=== PATIENT | female | born 1950 | race Caucasian/White ===

== ENCOUNTER 2016-04-24 05:57 | Observation (INO) | payer MEDICARE, BC ==
[2016-04-14 11:09] LABS: BASOPHILS 0.8 %; BASOPHILS ABSOLUTE 0.06 10/3/uL (0.0-0.16); EOSINOPHILS ABSOLUTE 0.16 10/3/uL (0.0-0.53); HEMOGLOBIN 11.8 g/dL (12.0-16.0); IMMATURE GRANULOCYTES 0.1 %; IMMATURE GRANULOCYTES ABSOLUTE 0.01 10/3/uL (0.0-0.11); LYMPHOCYTES 26.6 %; MEAN CORPUS HGB CONC 33.4 g/dL (32.0-36.0); MEAN PLATELET VOLUME 9.2 fL (9.2-13.0); MONOCYTES 10.1 %; NEUTROPHILS 60.4 %; NEUTROPHILS ABSOLUTE 4.76 10/3/uL (2.02-8.40); PLATELET COUNT 303 10/3/uL (150-400); RBC DISTRIBUTION WIDTH 12.1 % (12.0-16.0); RED CELL COUNT 3.32 10/6/uL (4.0-5.6); WHITE BLOOD CELLS 7.9 10/3/uL (4.5-10.5)
[2016-04-14 11:10] LABS: HEMATOCRIT 35.3 % (36.0-48.0); MANUAL DIFF NO %; MEAN CORPUSCULAR HEMOGLOB 35.5 pg (26.0-34.0); MEAN CORPUSCULAR VOLUME 106.3 fL (80-100)
[2016-04-14 11:20] LABS: BUN (BLOOD UREA NITROGEN) 23 MG/DL (6-23); CALCIUM, SERUM 8.8 MG/DL (8.5-10.4); CHLORIDE, SERUM 104 MMOL/L (96-112); CO2 (CARBON DIOXIDE) 27 MMOL/L (24-34); CREATININE 1.06 MG/DL (0.55-1.02); GFR AFRICAN AMERICAN 63 ML/MIN (>=60); GFR NON AFRICAN AMERICAN 55 ML/MIN (>=60); GLUCOSE, SERUM 106 MG/DL (60-99); POTASSIUM, SERUM 4.2 MMOL/L (3.5-5.3); SODIUM, SERUM 141 MMOL/L (135-148)
--- NOTE | ~2016-04-24 | HP ---
History And Physical [place] [id number] [facility] [place]. [address] NAME: ARUNA JEAN : 50 STATUS : DIS Dario PAT#: [id number] AGE: 66 ADM/REG DATE : 04/24/16 MR#: [id number] REPORT SERV DATE: 05/01/16 DICTATED BY: GUERRERO GALARZA DATE: 05/01/16 REPORT STATUS : Draft TRANSCRIBED BY: CARMEN DATE: 05/01/16 DATE OF ADMISSION: 04/24/2016 ADMITTING DIAGNOSES: 1. Cervical dysplasia. 2. Inability to follow cervix, secondary to unable to visualize cervix with vaginal scarring. 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 She has been followed with PAP smears. However more recently, the vaginal tissue has grown over the cervix and the cervix could no longer be visualized. She is here today 04/24/2016, for removal of the uterus and ovaries, secondary to the inability to follow her cervical dysplasia. 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 PAST SURGICAL HISTORY: Consistent with three previous colon resections, secondary to her history of Crohn's disease. CURRENT MEDICATIONS: Ambien, Valtrex, Crestor, multiple vitamins, potassium supplements, Mesalamine, Zestril, Lasix, Flonase, Nexium, Bentyl, Restasis, Wellbutrin, Xanax, and Pro air. SOCIAL HISTORY: Negative for any tobacco, alcohol, or illicit drug use. FAMILY HISTORY: Negative. PHYSICAL EXAMINATION: GENERAL: She is awake, alert, and oriented x3, with intact memory, and appears to be in no apparent distress. HEENT: Reveals no gross defects. Her extraocular movements are symmetrical and intact. Ears and nose are without defects or lesions. Her hearing is intact, normal for age. LUNGS: Clear to auscultation bilaterally. HEART: Regular rate and rhythm without abnormal noises or murmurs. EXTREMITIES: Both upper and lower have full range of motion. No clubbing, varicosities, or edema. PELVIC: Exam was deferred to the operating room. ASSESSMENT AND PLAN: In summary, this is a 66-year-old with a history of lower genital tract dysplasia, who now has a scarring in the vagina and the cervix could no longer be visualized. She is being taken to the operating room for removal of the uterus and ovaries. The risks of the procedure been discussed in detail and she has given their consent to proceed. History And Physical [address] [address] NAME: ARUNA JEAN : 50 STATUS : DIS Dario PAT#: [id number] AGE: 66 ADM/REG DATE : 04/24/16 MR#: [id number] REPORT SERV DATE: 05/01/16 DICTATED BY: GUERRERO GALARZA DATE: 05/01/16 REPORT STATUS : Draft TRANSCRIBED BY: CARMEN DATE: 05/01/16 Thank you for allowing to participate in her care. CHEPE/CARMEN Guerrero Galarza M.D. / [id number] CC: Opal Palafox M.D.
--- NOTE | ~2016-04-24 | OP ---
Record Of Operation [facility] [address] [place]. [address] NAME: CLAUS JEAN : 50 STATUS : DIS Dario PAT#: [id number] AGE: 66 ADM/REG DATE : 04/24/16 MR#: [id number] REPORT SERV DATE: 04/30/16 DICTATED BY: GUERRERO GALARZA DATE: 04/30/16 REPORT STATUS : Draft TRANSCRIBED BY: MODCory DATE: 04/30/16 DATE OF PROCEDURE: 04/24/2016 PREOPERATIVE DIAGNOSES: 1. History of lower genital tract dysplasia. 2. Inability to see the cervix secondary to vaginal scarring. POSTOPERATIVE DIAGNOSES: 1. History of lower genital tract dysplasia. 2. Inability to see the cervix secondary to vaginal scarring. PROCEDURE: 1. Laparoscopic hysterectomy with bilateral salpingo-oophorectomy via the da Jone laparoscopic robotic instrument, CPT Code 73349. 2. Extensive lysis of adhesions, CPT code 06194. ESTIMATED BLOOD LOSS: 50 mL. FLUIDS IN: 2000 mL of crystalloid. URINE OUTPUT: 600 mL. 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 She recently presented for a Pap smear and the cervix could not be visualized. Because of the inability to follow her Pap smear, decision was made to proceed with hysterectomy. She has had three previous colon resections and had extensive adhesions throughout the abdomen. Approximately 95% of the entire operative time was dedicated to remove these adhesions. The adhesions were throughout the entire abdominal cavity. The adhesions were taken down with a combination of straight laparoscopic techniques as well as robotic techniques. There were adhesions of the omentum, colon, and small bowel, and again took approximately two hours to get to the pelvis and so the uterus could be removed. The uterus was removed intact. The cervix could not be visualized and therefore a manipulator was not used. Cervix and uterus were examined on the back table with no gross evidence of malignancy. Postprocedure, a cystoscopy was performed with excellent bilateral ureteral jets. No evidence of bladder defect. Prior to the induction of anesthesia, the patient was treated with Lovenox for DVT prophylaxis as well as antibiotics. PROCEDURE IN DETAIL: The patient was taken to the operating room, and she was placed in supine position for administration of general anesthesia. She was then placed in dorsal lithotomy position and prepped and draped in usual sterile fashion. An attempt at placing the uterine manipulator was made, however, again the cervix could not be visualized. A ERNESTINE ring was placed where the cervix was thought to be and our attention was then turned towards the anterior abdominal wall. An incision was made in the left upper quadrant and carried down to the underlying layer of fascia. The fascia was grasped with two sutures of 0 Vicryl, tented up, and entered sharply. The peritoneum was then tented up and entered sharply, and a laparoscopic trocar was placed under direct visualization. The abdominal Record Of [facility] [address] [place]. [address] NAME: CLAUS JEAN : 50 STATUS : DIS Dario PAT#: [id number] AGE: 66 ADM/REG DATE : 04/24/16 MR#: [id number] REPORT SERV DATE: 04/30/16 DICTATED BY: GUERRERO GALARZA DATE: 04/30/16 REPORT STATUS : Draft TRANSCRIBED BY: MODCory DATE: 04/30/16 cavity was visualized with multiple adhesions noted. Initially, one additional 8 mm trocar was placed in the left lower quadrant and adhesions were taken down with sharp dissection under direct visualization. As multiple adhesions were taken down, additional trocars were placed until a total of four trocars were placed. Two additional 8 mm and one additional 12 mm trocar. Again, an extensive lysis of adhesions was required on the colon, small bowel, and omentum. These adhesions required approximately two hours of time to remove. Once the adhesions were displaced, the pelvis could be visualized and the patient was docked the laparoscopic robotic instrument and remainder of the procedure was performed via da Jone. Retroperitoneal spaces were opened via the round ligaments, which were grasped with bipolar cautery, cauterized, and transected bilaterally. The uterine arteries were identified at their origin and hemoclips were placed to ensure long-term hemostasis. The gonadal vessels were isolated, hemoclips were placed to ensure long-term hemostasis. They were then coagulated and transected bilaterally. Anteriorly, a bladder flap was created and taken down to a level well below the cervix. The uterine arteries were then skeletonized at the level of the cervix, grasped with bipolar cautery, cauterized, and transected bilaterally. Pressure was placed on the ERNESTINE ring from below and the uterosacral cardinal complex was taken down with sharp dissection and a circumferential incision was made around the cervix and vagina, and the uterus, tubes, ovaries, and cervix were delivered through the vagina with the above findings noted. The vaginal cuff was then closed with a running stitch of #1 PDS V-Loc. The pelvis was irrigated with copious amounts of warm water. A PRASHANT drain was placed at the vaginal cuff. The laparoscopic instruments were removed. The gas expelled from the abdomen. The initial incision was closed with 0 Vicryl at the fascia. The 12 mm port was also closed with 0 Vicryl at the fascia, and the 8 mm ports were closed with 4-0 Vicryl at the skin and Dermabond was placed. Postprocedure, a cystoscopy was performed with excellent bilateral ureteral jets. No evidence of bladder defect. At the completion of the procedure, the anesthesia was reversed. The patient was extubated and brought to the recovery room in stable condition. CHEPE/MODL Guerrero Galarza M.D. / [id number] CC: Opal Palafox M.D.
--- NOTE | ~2016-04-24 | DS ---
Discharge Summary [place] [address] [place]. [address] NAME: ARUNA JEAN : 50 STATUS : DIS Dario PAT#: [id number] AGE: 66 ADM/REG DATE : 04/24/16 MR#: [id number] REPORT SERV DATE: 05/01/16 DICTATED BY: GUERRERO GALARZA DATE: 05/01/16 REPORT STATUS : Draft TRANSCRIBED BY: MODL DATE: 05/01/16 ADMISSION DATE: 04/24/2016 DISCHARGE DATE: 04/27/2016 ADMITTING DIAGNOSIS: Lower genital tract dysplasia with a history of cervical cancer. PRINCIPLE PROCEDURE: Laparoscopic hysterectomy, BSO, and laparoscopic lysis of adhesions. 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 She was taken to the operating room on 04/24/2016, for laparoscopic hysterectomy/BSO. Intraoperatively, she was found to have multiple adhesions and extensive lysis of adhesions was undertaken. Post procedure, she did well and was uncomplicated. She was discharged home on 04/27/2016, with instructions to follow up at [facility]. CHEPE/CARMEN Guerrero Galarza M.D. / [id number] CC: Opal Palafox M.D.
[~2016-04-24 05:57] MED LIST: ACET500CAP PO; ALLERGY REL1 OPH; AMB5 PO; AMBIEN CR12.5 MG PO; BENTYL10 PO; BL FLAX SEED1000 MG OR; CENTRUM PO; CRESTOR20 MG PO; CYANO1000T PO; DELZICOL 400 M400 MG PO; FISH-EPA1000 MG PO; FLAG500TAB PO; FLAXSEED OIL1000 MG PO; FLONASE NAS; FOSAMAX70 MG PO; KLOR-CON 1010 MEQ PO; L20 PO; MAXZIDE PO; MULTIVITAMI1 PO; NEXIUM40 PO; NORCO1 TA1 PO; PRIN10 PO; PRIN5 PO; PROAIR HFA INH; PROBIOTIC OTC PO; RESTASIS OPH; SYSTANE OPH; VALTREX5 PO; VANCOCIN HCL125 MG PO; VENTOLIN HFA INH; VIT B-SIX 50 MG50 MG PO; VITAMIN D31000 UNIT PO; VITC500 PO; VITE PO; WELLBUTRIN200 MG PO; X5 PO; ZESTRIL5 MG PO; ZETIA PO; [UNRECOGNIZED DRUG - OTHER] V
[2016-04-25 05:39] LABS: BUN (BLOOD UREA NITROGEN) 11 MG/DL (6-23); CALCIUM, SERUM 8.7 MG/DL (8.5-10.4); CHLORIDE, SERUM 94 MMOL/L (96-112); CO2 (CARBON DIOXIDE) 26 MMOL/L (24-34); CREATININE 1.01 MG/DL (0.55-1.02); GFR AFRICAN AMERICAN 67 ML/MIN (>=60); GFR NON AFRICAN AMERICAN 58 ML/MIN (>=60); GLUCOSE, SERUM 100 MG/DL (60-99); POTASSIUM, SERUM 3.6 MMOL/L (3.5-5.3); SODIUM, SERUM 129 MMOL/L (135-148)
[2016-04-25 06:11] LABS: BASOPHILS 0.1 %; BASOPHILS ABSOLUTE 0.01 10/3/uL (0.0-0.16); EOSINOPHILS 0.2 %; EOSINOPHILS ABSOLUTE 0.02 10/3/uL (0.0-0.53); HEMATOCRIT 31.8 % (36.0-48.0); HEMOGLOBIN 10.8 g/dL (12.0-16.0); IMMATURE GRANULOCYTES 0.2 %; IMMATURE GRANULOCYTES ABSOLUTE 0.02 10/3/uL (0.0-0.11); LYMPHOCYTES 14.3 %; LYMPHOCYTES ABSOLUTE 1.63 10/3/uL (0.67-4.30); MEAN CORPUSCULAR HEMOGLOB 35.8 pg (26.0-34.0); MEAN CORPUSCULAR VOLUME 105.3 fL (80-100); MEAN PLATELET VOLUME 9.5 fL (9.2-13.0); MONOCYTES 10.3 %; MONOCYTES ABSOLUTE 1.17 10/3/uL (0.21-1.20); NEUTROPHILS 74.9 %; NEUTROPHILS ABSOLUTE 8.52 10/3/uL (2.02-8.40); PLATELET COUNT 299 10/3/uL (150-400); RBC DISTRIBUTION WIDTH 12.5 % (12.0-16.0); RED CELL COUNT 3.02 10/6/uL (4.0-5.6)
[2016-04-25 06:12] LABS: MANUAL DIFF NO %; WHITE BLOOD CELLS 11.4 10/3/uL (4.5-10.5)
[2016-04-26 11:39] LABS: BASOPHILS 0.3 %; BASOPHILS ABSOLUTE 0.03 10/3/uL (0.0-0.16); EOSINOPHILS 1.2 %; EOSINOPHILS ABSOLUTE 0.12 10/3/uL (0.0-0.53); HEMOGLOBIN 9.5 g/dL (12.0-16.0); IMMATURE GRANULOCYTES 0.2 %; IMMATURE GRANULOCYTES ABSOLUTE 0.02 10/3/uL (0.0-0.11); LYMPHOCYTES 13.3 %; MEAN CORPUS HGB CONC 34.5 g/dL (32.0-36.0); MEAN CORPUSCULAR HEMOGLOB 36.5 pg (26.0-34.0); MEAN CORPUSCULAR VOLUME 105.8 fL (80-100); MEAN PLATELET VOLUME 8.8 fL (9.2-13.0); MONOCYTES 15.4 %; MONOCYTES ABSOLUTE 1.51 10/3/uL (0.21-1.20); NEUTROPHILS 69.6 %; NEUTROPHILS ABSOLUTE 6.82 10/3/uL (2.02-8.40); PLATELET COUNT 283 10/3/uL (150-400); RBC DISTRIBUTION WIDTH 12.6 % (12.0-16.0); WHITE BLOOD CELLS 9.8 10/3/uL (4.5-10.5)
[2016-04-26 11:43] LABS: HEMATOCRIT 27.5 % (36.0-48.0)
[2016-04-26 11:44] LABS: MANUAL DIFF NO %
[2016-04-26 11:45] LABS: BUN (BLOOD UREA NITROGEN) 12 MG/DL (6-23); CALCIUM, SERUM 8.4 MG/DL (8.5-10.4); CHLORIDE, SERUM 98 MMOL/L (96-112); CO2 (CARBON DIOXIDE) 28 MMOL/L (24-34); CREATININE 1.18 MG/DL (0.55-1.02); GFR AFRICAN AMERICAN 56 ML/MIN (>=60); GFR NON AFRICAN AMERICAN 48 ML/MIN (>=60); GLUCOSE, SERUM 107 MG/DL (60-99); POTASSIUM, SERUM 4.1 MMOL/L (3.5-5.3); SODIUM, SERUM 136 MMOL/L (135-148)
[2016-04-27 05:03] LABS: BASOPHILS 0.3 %; BASOPHILS ABSOLUTE 0.03 10/3/uL (0.0-0.16); EOSINOPHILS 1.3 %; EOSINOPHILS ABSOLUTE 0.14 10/3/uL (0.0-0.53); HEMATOCRIT 31.1 % (36.0-48.0); HEMOGLOBIN 10.5 g/dL (12.0-16.0); IMMATURE GRANULOCYTES 0.3 %; IMMATURE GRANULOCYTES ABSOLUTE 0.03 10/3/uL (0.0-0.11); LYMPHOCYTES ABSOLUTE 1.16 10/3/uL (0.67-4.30); MANUAL DIFF NO %; MEAN CORPUS HGB CONC 33.8 g/dL (32.0-36.0); MEAN CORPUSCULAR HEMOGLOB 35.8 pg (26.0-34.0); MEAN CORPUSCULAR VOLUME 106.1 fL (80-100); MEAN PLATELET VOLUME 8.8 fL (9.2-13.0); MONOCYTES ABSOLUTE 1.16 10/3/uL (0.21-1.20); NEUTROPHILS 76.1 %; NEUTROPHILS ABSOLUTE 7.99 10/3/uL (2.02-8.40); PLATELET COUNT 305 10/3/uL (150-400); RBC DISTRIBUTION WIDTH 12.5 % (12.0-16.0); RED CELL COUNT 2.93 10/6/uL (4.0-5.6); WHITE BLOOD CELLS 10.5 10/3/uL (4.5-10.5)
[2016-04-27 05:19] LABS: BUN (BLOOD UREA NITROGEN) 16 MG/DL (6-23); CHLORIDE, SERUM 97 MMOL/L (96-112); CO2 (CARBON DIOXIDE) 31 MMOL/L (24-34); CREATININE 1.21 MG/DL (0.55-1.02); GFR AFRICAN AMERICAN 54 ML/MIN (>=60); GFR NON AFRICAN AMERICAN 47 ML/MIN (>=60); GLUCOSE, SERUM 120 MG/DL (60-99); POTASSIUM, SERUM 3.8 MMOL/L (3.5-5.3); SODIUM, SERUM 139 MMOL/L (135-148)
[2016-04-27] MEDS ORDERED: COMP10B PO (11:35)
[2016-04-27] MEDS ORDERED: PCET PO (11:38)
== END 2016-04-27 15:34 | disposition home or self-care (01) ==
LOC: SDC 05:57 → 4EA 14:47
PROVIDERS: Obstetrics & Gynecology Gynecologic Oncology
PROC: 0UT74ZZ Resection of Bilateral Fallopian Tubes, Percutaneous Endoscopic Approach (ICD-10-PCS; 2016-04-24)
PROC: 0DNS4ZZ (ICD-10-PCS; 2016-04-24)
PROC: 0DNF4ZZ Release Right Large Intestine, Percutaneous Endoscopic Approach (ICD-10-PCS; 2016-04-24)
PROC: 0DNG4ZZ Release Left Large Intestine, Percutaneous Endoscopic Approach (ICD-10-PCS; 2016-04-24)
PROC: 0DNT4ZZ (ICD-10-PCS; 2016-04-24)
PROC: 0UT94ZZ Resection of Uterus, Percutaneous Endoscopic Approach (ICD-10-PCS; principal; 2016-04-24 07:00)
PROC: 0UTC4ZZ Resection of Cervix, Percutaneous Endoscopic Approach (ICD-10-PCS; 2016-04-24 07:00)
PROC: 0UT24ZZ Resection of Bilateral Ovaries, Percutaneous Endoscopic Approach (ICD-10-PCS; 2016-04-24 07:00)
DX: N85.8 Other specified noninflammatory disorders of uterus (principal); D25.9 Leiomyoma of uterus, unspecified; N70.11 Chronic salpingitis; K50.90 Crohn's disease, unspecified, without complications; I10 Essential (primary) hypertension; J45.909 Unspecified asthma, uncomplicated; Z85.6 Personal history of leukemia; Z88.1 Allergy status to other antibiotic agents; Z91.09 Other allergy status, other than to drugs and biological substances; Z79.899 Other long term (current) drug therapy; Z23 Encounter for immunization
CPT/HCPCS: 36415; 80048; 83605; 85025; 86850; 86900; 86901; 88307; 90662; 93005; 96374; 96375; 96376; A9270-GY; G0008; G0378; J0690; J0694; J2250; J2270; J2370; J2405; J2710; J2795; J3010